=== PATIENT | female | born 1950 | race Hispanic/Latino ===

== ENCOUNTER 2018-07-01 21:14 | Emergency (ER) | payer OTHER, MEDICARE ==
[~2018-07-01 21:14] MED LIST: ATOR20TA65 PO; CHOL100018 PO; LISI10TA7 PO; METF-444 PO; OMEP10CA41 PO; SERT25TA5 PO; TRAZ-185 PO
[2018-07-01 21:59] LABS: RAPID GROUP A STREP NEGATIVE (NEGATIVE)
[2018-07-01] MEDS ORDERED: DEXAMETHASONE SOD PHOSPHATE 10MG/ML 1ML VIAL ONE (21:59)
[2018-07-01] MEDS ORDERED: IPRATROPIUM/ALBUTEROL SULFATE 3 ML SOLUTION IH ONE (22:00)
[2018-07-01] MEDS ORDERED: ACETAMINOPHEN EXTRA STRENGTH 500 MG TABLET ONE (22:00)
[2018-07-01] MEDS ORDERED: AZITHROMYCIN 250 MG TABLET PO ONE (23:09)
== END 2018-07-01 23:21 | disposition home or self-care (01) ==
LOC: EDH 21:14
DX: J20.9 Acute bronchitis, unspecified (principal); H92.09 Otalgia, unspecified ear; F32.9 Major depressive disorder, single episode, unspecified; E11.9 Type 2 diabetes mellitus without complications; E78.5 Hyperlipidemia, unspecified; E03.9 Hypothyroidism, unspecified; I10 Essential (primary) hypertension; Z79.4 Long term (current) use of insulin; Z90.710 Acquired absence of both cervix and uterus
CPT/HCPCS: 87804 ×2; 87880; 94640; 96372; 99283; J1100

== ENCOUNTER 2020-03-25 16:44 | Emergency (ER) | payer OTHER, MEDICARE ==
[~2020-03-25 16:44] MED LIST changes: -OMEP10CA41 PO; +OMEP10CA5 PO
[2020-03-25] MEDS ORDERED: ACETAMINOPHEN EXTRA STRENGTH 500 MG TABLET ONE (17:21)
[2020-03-25] MEDS ORDERED: IBUPROFEN 400 MG TABLET ONE (17:21)
[2020-03-25] MEDS ORDERED: AMOXICILLIN 500 MG CAPSULE PO ONE (17:22)
== END 2020-03-25 18:01 | disposition home or self-care (01) ==
LOC: EDH 16:44
DX: K04.7 Periapical abscess without sinus (principal); E11.9 Type 2 diabetes mellitus without complications; I10 Essential (primary) hypertension; E03.9 Hypothyroidism, unspecified; F32.9 Major depressive disorder, single episode, unspecified; Z98.51 Tubal ligation status

== ENCOUNTER 2020-04-04 19:38 | Emergency (ER) | payer OTHER, MEDICARE ==
[2020-04-04 20:21] LABS: BASOPHILS % (AUTO) 0.4 % (0.0-5.0); EOSINOPHILS % (AUTO) 1.9 % (0.0-8.0); HEMATOCRIT 37.9 % (36-48); LYMPHOCYTES % (AUTO) 32.5 % (21.0-51.0); MEAN CORPUSCULAR HEMOGLOBIN 27.4 pg (27.0-33.0); MEAN CORPUSCULAR VOLUME 83.1 fL (79-99); MONOCYTES % (AUTO) 4.9 % (3.0-13.0); NEUTROPHILS % (AUTO) 59.2 % (40.0-77.0); PLATELET COUNT (AUTO) 369 K/uL (130-400); RED BLOOD CELL COUNT(AUTO) 4.56 MIL/uL (4.00-5.50); RED CELL DISTRIBUTION WIDTH 12.3 % (11.0-15.5); WHITE BLOOD COUNT (AUTO) 7.2 K/uL (4.8-10.8)
[2020-04-04] MEDS ORDERED: ONDANSETRON HCL 4 MG/2 ML VIAL ONE (20:24)
[2020-04-04] MEDS ORDERED: MECLIZINE HCL 25 MG TABLET ONE (20:24)
[2020-04-04 20:30] LABS: CREATININE 0.6 mg/dL (0.5-1.5); INR 0.98 (0.85-1.15); POTASSIUM 3.3 mmol/L (3.5-5.1); PROTHROMBIN TIME 10.6 SEC (9.6-11.6)
[2020-04-04 20:35] LABS: ALBUMIN 3.7 g/dL (3.5-5.0); BILIRUBIN,TOTAL 0.2 mg/dL (0.2-1.0); TOTAL PROTEIN, SERUM 7.8 g/dL (6.0-8.3)
[2020-04-04] MEDS ORDERED: POTASSIUM BICARB/CIT AC 25 MEQ TABLET.EFF ONE (20:36)
[2020-04-04 20:42] LABS: B-TYPE NATRIURETIC PEPTIDE 15 pg/mL (0-100)
[2020-04-04 21:29] LABS: APPEARANCE,URINE Clear (CLEAR); BILIRUBIN,URINE Negative (NEGATIVE); COLOR,URINE Yellow (YELLOW); GLUCOSE, URINE (UA) Negative (NEGATIVE); KETONES,URINE Negative (NEGATIVE); LEUKOCYTE ESTERASE ,URINE Negative (NEGATIVE); NITRATE,URINE Negative (NEGATIVE); OCCULT BLOOD,URINE Trace (NEGATIVE); PH,URINE 8.5 (5.0-8.0); PROTEIN,URINE Negative (NEGATIVE)
[2020-04-04 21:37] LABS: BACTERIA,URINE Rare /HPF (None Seen); RBC,URINE 0-1 /HPF (0-1); WBC,URINE 0-1 /HPF (0-1)
[2020-04-04 21:38] LABS: SQUAMOUS EPITHELIAL CELL,UR Rare /HPF (0-2)
== END 2020-04-04 22:01 | disposition home or self-care (01) ==
LOC: EDH 19:38
DX: H81.399 Other peripheral vertigo, unspecified ear (principal); E86.0 Dehydration; I10 Essential (primary) hypertension; E87.6 Hypokalemia; E03.9 Hypothyroidism, unspecified; E11.9 Type 2 diabetes mellitus without complications; F32.9 Major depressive disorder, single episode, unspecified; Z98.51 Tubal ligation status
CPT/HCPCS: 36415; 70450; 80053; 81001; 82550; 83880; 84484; 85025; 85610; 85730; 93005; 96361; 96374; 99285; J2405; J7030

== ENCOUNTER 2021-01-26 11:47 | Emergency (ER) | payer OTHER, MEDICARE ==
[~2021-01-26] VITALS: Ht 152.4 cm; Wt 55.8 kg
[~2021-01-26 11:47] MED LIST changes: +LISI10TA24 PO; -LISI10TA7 PO; +SERT-438 PO; -SERT25TA5 PO
[2021-01-26 11:49] VITALS: BP 145/65
[2021-01-26] MEDS ORDERED: KETOROLAC 15MG/ML VIAL (15MG/ML) IM ONE (13:00)
[2021-01-26] MEDS ORDERED: ORPHENADRINE CITRATE 30 MG/ML ML IM ONE (13:00)
[2021-01-26 13:25] VITALS: BP 132/68
== END 2021-01-26 15:21 | disposition home or self-care (01) ==
LOC: EDH 11:47
DX: M54.5 Low back pain (principal); M25.552 Pain in left hip; E03.9 Hypothyroidism, unspecified; E78.00 Pure hypercholesterolemia, unspecified; F41.9 Anxiety disorder, unspecified; I10 Essential (primary) hypertension; K21.9 Gastro-esophageal reflux disease without esophagitis; Z79.84 Long term (current) use of oral hypoglycemic drugs; Z79.899 Other long term (current) drug therapy
CPT/HCPCS: 96372 ×2; 99284; J1885; J2360

== ENCOUNTER → 2021-01-31 | Outpatient (CLI) | payer OTHER, MEDICARE | END | disposition home or self-care (01) | LOC: RAH 15:22 | PROVIDERS: ATTEND Internal Medicine | DX: S39.012A Strain of muscle, fascia and tendon of lower back, initial encounter (principal); M47.816 Spondylosis without myelopathy or radiculopathy, lumbar region; M62.838 Other muscle spasm; X58.XXXA Exposure to other specified factors, initial encounter; Y93.89 Activity, other specified; Y92.89 Other specified places as the place of occurrence of the external cause; Y99.8 Other external cause status | CPT/HCPCS: 72100 ==

== ENCOUNTER → 2022-09-15 | Outpatient (CLI) | payer OTHER, MEDICARE | END | disposition home or self-care (01) | LOC: RAH 10:21 | PROVIDERS: ATTEND Internal Medicine | DX: Z12.31 Encounter for screening mammogram for malignant neoplasm of breast (principal) | CPT/HCPCS: 77067 ==

== ENCOUNTER 2023-02-02 12:25 | Emergency (ER) | payer MEDICARE ==
[~2023-02-02] VITALS: Ht 152.4 cm; Wt 53.5 kg
[2023-02-02 12:50] VITALS: BP 146/87; PULSE 82; RESP 16; O2SAT 97
[2023-02-02] MEDS ORDERED: DIPH,PERTUSS(ACELL),TET VAC/PF 0.5 ML VIAL IM ONE (13:30)
[2023-02-02] MEDS ORDERED: BACI28.434 TP (13:52)
== END 2023-02-02 14:06 | disposition home or self-care (01) ==
LOC: EDH 12:25
DX: S90.812A Abrasion, left foot, initial encounter (principal); S80.212A Abrasion, left knee, initial encounter; I10 Essential (primary) hypertension; E78.00 Pure hypercholesterolemia, unspecified; E03.9 Hypothyroidism, unspecified; F41.9 Anxiety disorder, unspecified; Z79.84 Long term (current) use of oral hypoglycemic drugs; Z79.899 Other long term (current) drug therapy; W18.39XA Other fall on same level, initial encounter; Y93.89 Activity, other specified; Y92.89 Other specified places as the place of occurrence of the external cause; Y99.8 Other external cause status
CPT/HCPCS: 73140; 73562; 73630; 90471; 90715

== ENCOUNTER → 2023-02-13 | Outpatient (CLI) | payer MEDICARE ==
[~2023-02-13] MED LIST changes: +BACI28.434 TP
== END | disposition home or self-care (01) ==
LOC: RAH 11:45
PROVIDERS: ATTEND Internal Medicine
DX: S96.912A Strain of unspecified muscle and tendon at ankle and foot level, left foot, initial encounter (principal); S56.912A Strain of unspecified muscles, fascia and tendons at forearm level, left arm, initial encounter; M25.572 Pain in left ankle and joints of left foot; M19.072 Primary osteoarthritis, left ankle and foot; M19.042 Primary osteoarthritis, left hand; M79.642 Pain in left hand; M79.632 Pain in left forearm; M79.672 Pain in left foot; M79.89 Other specified soft tissue disorders; X58.XXXA Exposure to other specified factors, initial encounter; Y93.89 Activity, other specified; Y92.89 Other specified places as the place of occurrence of the external cause; Y99.8 Other external cause status
CPT/HCPCS: 73090; 73130; 73600; 73630

== ENCOUNTER 2023-05-07 09:49 | Inpatient (IN) | payer MEDICARE ==
[~2023-05-07] VITALS: Ht 152.4 cm; Wt 57.7 kg
[2023-05-07 10:57] LABS: BASOPHILS # (AUTO) 0.04 K/uL (0.00-0.20); BASOPHILS % (AUTO) 0.3 % (0.0-5.0); EOSINOPHILS # (AUTO) 0.05 K/uL (0.00-0.70); EOSINOPHILS % (AUTO) 0.4 % (0.0-8.0); HEMATOCRIT 39.4 % (36-48); IMMATURE GRANULOCYTE ABSOLUTE 0.04 K/uL (0-1); LYMPHOCYTES % (AUTO) 15.6 % (21.0-51.0); MEAN CORPUSCULAR HEMOGLOBIN 28.6 pg (27.0-33.0); MEAN CORPUSCULAR HGB CONC 33.8 g/dL (32.0-36.0); MEAN CORPUSCULAR VOLUME 84.7 fL (79-99); MONOCYTES # (AUTO) 0.6 K/uL (0.1-1.0); MONOCYTES % (AUTO) 4.6 % (3.0-13.0); NEUTROPHILS # (AUTO) 10.1 K/uL (1.8-7.7); NEUTROPHILS % (AUTO) 78.8 % (40.0-77.0); PLATELET COUNT (AUTO) 330 K/uL (130-400); RED BLOOD CELL COUNT(AUTO) 4.65 MIL/uL (4.00-5.50); RED CELL DISTRIBUTION WIDTH 12.7 % (11.0-15.5); WHITE BLOOD COUNT (AUTO) 12.8 K/uL (4.8-10.8)
[2023-05-07 11:09] LABS: CREATININE 0.6 mg/dL (0.5-1.5); POTASSIUM 3.6 mmol/L (3.5-5.1)
[2023-05-07 11:15] LABS: ALBUMIN 3.7 g/dL (3.5-5.0); BILIRUBIN,TOTAL 0.5 mg/dL (0.2-1.0); TOTAL PROTEIN, SERUM 7.9 g/dL (6.0-8.3)
[2023-05-07] MEDS ORDERED: KETOROLAC 30MG VIAL (30MG/ML) IVP ONE (11:30)
[2023-05-07] MEDS ORDERED: ZOSYN 3.375GM +NS 50ML IV ONE (12:00)
[2023-05-07] MEDS ORDERED: LACTATED RINGERS 1000ML IV SCH (12:00)
[2023-05-07] MEDS ORDERED: MORPHINE 2 MG SYG IVP PRN (12:30)
[2023-05-07] MEDS ORDERED: ONDANSETRON 4MG TABLET PO PRN (12:30)
[2023-05-07] MEDS ORDERED: NAPR-1023 PO (13:03)
[2023-05-07] MEDS ORDERED: SERT-440 PO (13:03)
[2023-05-07] MEDS ORDERED: OMEP20CA12 PO (13:03)
[2023-05-07] MEDS ORDERED: LISI10TA24 PO (13:03)
[2023-05-07] MEDS ORDERED: LEVO112C4 PO (13:03)
[2023-05-07 13:31] LABS: INFLUENZA TYPE A Negative For Type A (NEGATIVE); INFLUENZA TYPE B Negative For Type B (NEGATIVE)
[2023-05-07] MEDS ORDERED: IOHEXOL-350 50ML VIAL IV ONE (14:18)
[2023-05-07 16:00] VITALS: BP 146/72; PULSE 70; RESP 18
[2023-05-07 18:00] VITALS: O2SAT 97
[2023-05-07 19:30] VITALS: BP 151/87; PULSE 78; RESP 20
[2023-05-07] MEDS: ZOSYN 3.375GM +NS 50ML IV SCH (20:45)
[2023-05-07 21:00] VITALS: O2SAT 97
[2023-05-07 23:00] VITALS: BP 141/48; PULSE 90; RESP 21
[2023-05-08] MEDS: ACETAMINOPHEN 325 MG TAB PO PRN (00:50)
[2023-05-08 03:00] VITALS: BP 116/59; PULSE 77; RESP 20
[2023-05-08] MEDS: ZOSYN 3.375GM +NS 50ML IV SCH ×3 (04:13→21:07)
[2023-05-08 05:16] LABS: BASOPHILS # (AUTO) 0.04 K/uL (0.00-0.20); BASOPHILS % (AUTO) 0.5 % (0.0-5.0); EOSINOPHILS # (AUTO) 0.11 K/uL (0.00-0.70); EOSINOPHILS % (AUTO) 1.3 % (0.0-8.0); HEMATOCRIT 34.7 % (36-48); IMMATURE GRANULOCYTE ABSOLUTE 0.04 K/uL (0-1); LYMPHOCYTES # (AUTO) 2.3 K/uL (1.0-4.8); LYMPHOCYTES % (AUTO) 26.3 % (21.0-51.0); MEAN CORPUSCULAR HGB CONC 33.4 g/dL (32.0-36.0); MEAN CORPUSCULAR VOLUME 86.8 fL (79-99); MONOCYTES # (AUTO) 0.6 K/uL (0.1-1.0); MONOCYTES % (AUTO) 6.7 % (3.0-13.0); NEUTROPHILS # (AUTO) 5.6 K/uL (1.8-7.7); NEUTROPHILS % (AUTO) 64.7 % (40.0-77.0); PLATELET COUNT (AUTO) 266 K/uL (130-400); RED CELL DISTRIBUTION WIDTH 12.5 % (11.0-15.5); WHITE BLOOD COUNT (AUTO) 8.7 K/uL (4.8-10.8)
[2023-05-08 05:42] LABS: HEMOGLOBIN A1C 5.7 % (4.0-6.0)
[2023-05-08 05:49] LABS: ALBUMIN 2.9 g/dL (3.5-5.0); BILIRUBIN,TOTAL 0.6 mg/dL (0.2-1.0); CREATININE 0.7 mg/dL (0.5-1.5); MAGNESIUM 1.9 mg/dL (1.80-2.40); POTASSIUM 3.2 mmol/L (3.5-5.1); TOTAL PROTEIN, SERUM 6.7 g/dL (6.0-8.3)
[2023-05-08 08:00] VITALS: BP 98/47; PULSE 72; RESP 18; O2SAT 98
[2023-05-08] MEDS: ENOXAPARIN SODIUM 30 MG/0.3 ML SQ SCH (10:22)
[2023-05-08 12:00] VITALS: BP 119/68; PULSE 62; RESP 18
[2023-05-08] MEDS ORDERED: GADOTERATE MEGLUMINE 10 MMOL/20 ML VIAL IV ONE (12:38)
[2023-05-08 16:00] VITALS: BP 125/54; PULSE 72; RESP 18
[2023-05-08] MEDS ORDERED: NAPROXEN 500 MG TABLET PO PRN (18:00)
[2023-05-08 20:00] VITALS: BP 136/76; PULSE 68; RESP 16
[2023-05-08] MEDS: ATORVASTATIN 20 MG TABLET PO SCH (21:07)
[2023-05-09] VITALS (9 sets, daily range): BP systolic 100–144; BP diastolic 45–81; PULSE 63–79; RESP 16–18; O2SAT 94–96
[2023-05-09] MEDS: ZOSYN 3.375GM +NS 50ML IV SCH ×3 (04:55→20:42)
[2023-05-09] MEDS: LEVOTHYROXINE 112 MCG TABLET PO SCH (06:23)
[2023-05-09] MEDS ORDERED: NON-FORMULARY MEDICATION 1 EACH (Levothyroxine Sodium (Levothyroxine) 112 MCG) PO SCH (09:00)
[2023-05-09] MEDS ORDERED: NON-FORMULARY MEDICATION 1 EACH (Omeprazole 20 MG) PO SCH (09:00)
[2023-05-09] MEDS: ENOXAPARIN SODIUM 30 MG/0.3 ML SQ SCH (09:41)
[2023-05-09] MEDS: LISINOPRIL 10 MG TABLET PO SCH (09:41)
[2023-05-09] MEDS: PANTOPRAZOLE 40 MG TAB DR PO SCH (09:41)
[2023-05-09] MEDS: SERTRALINE HCL 50 MG TABLET PO SCH (09:41)
[2023-05-09] MEDS ORDERED: LORATADINE 10 MG TABLET PO ONE (15:00)
[2023-05-09] MEDS: ATORVASTATIN 20 MG TABLET PO SCH (20:42)
[2023-05-09] MEDS: GUAIFENESIN 600 MG TABLET.ER PO SCH (20:43)
[2023-05-10] VITALS (14 sets, daily range): BP systolic 127–143; BP diastolic 63–77; PULSE 65–102; RESP 16–21; O2SAT 96–98
[2023-05-10] MEDS: ACETAMINOPHEN 325 MG TAB PO PRN (00:02)
[2023-05-10] MEDS: IPRATROPIUM/ALBUTEROL SULFATE 3 ML SOLUTION IH PRN ×4 (04:40→19:02)
[2023-05-10] MEDS: GUAIFENESIN 600 MG TABLET.ER PO SCH ×3 (05:03→20:24)
[2023-05-10] MEDS: ZOSYN 3.375GM +NS 50ML IV SCH ×3 (05:03→20:26)
[2023-05-10 05:19] LABS: HEMATOCRIT 33.7 % (36-48); MEAN CORPUSCULAR HEMOGLOBIN 28.6 pg (27.0-33.0); MEAN CORPUSCULAR HGB CONC 34.1 g/dL (32.0-36.0); MEAN CORPUSCULAR VOLUME 83.8 fL (79-99); RED BLOOD CELL COUNT(AUTO) 4.02 MIL/uL (4.00-5.50); RED CELL DISTRIBUTION WIDTH 12.4 % (11.0-15.5); WHITE BLOOD COUNT (AUTO) 7.3 K/uL (4.8-10.8)
[2023-05-10 05:49] LABS: CREATININE 0.7 mg/dL (0.5-1.5); POTASSIUM 3.2 mmol/L (3.5-5.1)
[2023-05-10] MEDS: LEVOTHYROXINE 112 MCG TABLET PO SCH (06:20)
[2023-05-10] MEDS: LISINOPRIL 10 MG TABLET PO SCH (08:51)
[2023-05-10] MEDS: LORATADINE 10 MG TABLET PO SCH (08:51)
[2023-05-10] MEDS: PANTOPRAZOLE 40 MG TAB DR PO SCH (08:51)
[2023-05-10] MEDS: ENOXAPARIN SODIUM 30 MG/0.3 ML SQ SCH (08:52)
[2023-05-10] MEDS: SERTRALINE HCL 50 MG TABLET PO SCH (08:55)
[2023-05-10] MEDS ORDERED: SOLU-MEDROL 40MG VIAL IVP ONE (14:00)
[2023-05-10] MEDS ORDERED: SODIUM CHLORIDE 3% FOR INHALATION 4 ML/AMP VIAL.NEB IH ONE (14:06)
[2023-05-10] MEDS: DOXYCYCLINE HYCLATE 100 MG TABLET PO SCH ×2 (14:41→20:22)
[2023-05-10 15:47] LABS: INFLUENZA TYPE B Negative For Type B (NEGATIVE)
[2023-05-10 15:59] LABS: INFLUENZA TYPE A Positive For Type A (NEGATIVE)
[2023-05-10] MEDS: OSELTAMIVIR PHOSPHATE 75 MG CAP PO SCH (20:22)
[2023-05-10] MEDS: ATORVASTATIN 20 MG TABLET PO SCH (20:22)
[2023-05-11] VITALS (13 sets, daily range): BP systolic 99–153; BP diastolic 48–85; PULSE 62–76; RESP 16–20; O2SAT 93–98
[2023-05-11] MEDS: IPRATROPIUM/ALBUTEROL SULFATE 3 ML SOLUTION IH PRN (00:02)
[2023-05-11] MEDS: GUAIFENESIN 600 MG TABLET.ER PO SCH ×3 (03:40→20:23)
[2023-05-11] MEDS: ZOSYN 3.375GM +NS 50ML IV SCH ×3 (03:40→20:22)
[2023-05-11 04:54] LABS: BASOPHILS # (AUTO) 0.01 K/uL (0.00-0.20); BASOPHILS % (AUTO) 0.1 % (0.0-5.0); HEMATOCRIT 32.4 % (36-48); IMMATURE GRANULOCYTE ABSOLUTE 0.02 K/uL (0-1); LYMPHOCYTES # (AUTO) 0.8 K/uL (1.0-4.8); LYMPHOCYTES % (AUTO) 12.3 % (21.0-51.0); MEAN CORPUSCULAR HEMOGLOBIN 28.6 pg (27.0-33.0); MEAN CORPUSCULAR HGB CONC 33.3 g/dL (32.0-36.0); MEAN CORPUSCULAR VOLUME 85.9 fL (79-99); MONOCYTES # (AUTO) 0.4 K/uL (0.1-1.0); MONOCYTES % (AUTO) 5.9 % (3.0-13.0); NEUTROPHILS # (AUTO) 5.5 K/uL (1.8-7.7); NEUTROPHILS % (AUTO) 81.4 % (40.0-77.0); PLATELET COUNT (AUTO) 295 K/uL (130-400); RED BLOOD CELL COUNT(AUTO) 3.77 MIL/uL (4.00-5.50); RED CELL DISTRIBUTION WIDTH 12.5 % (11.0-15.5); WHITE BLOOD COUNT (AUTO) 6.7 K/uL (4.8-10.8)
[2023-05-11 05:06] LABS: CREATININE 0.8 mg/dL (0.5-1.5); MAGNESIUM 1.9 mg/dL (1.80-2.40); POTASSIUM 3.3 mmol/L (3.5-5.1)
[2023-05-11] MEDS: LEVOTHYROXINE 112 MCG TABLET PO SCH (05:26)
[2023-05-11] MEDS: PANTOPRAZOLE 40 MG TAB DR PO SCH (06:10)
[2023-05-11] MEDS: OSELTAMIVIR PHOSPHATE 75 MG CAP PO SCH ×2 (08:26→20:23)
[2023-05-11] MEDS: LORATADINE 10 MG TABLET PO SCH (08:26)
[2023-05-11] MEDS: SERTRALINE HCL 50 MG TABLET PO SCH (08:26)
[2023-05-11] MEDS: DOXYCYCLINE HYCLATE 100 MG TABLET PO SCH ×2 (08:26→20:23)
[2023-05-11] MEDS: LISINOPRIL 10 MG TABLET PO SCH (08:26)
[2023-05-11] MEDS: ENOXAPARIN SODIUM 30 MG/0.3 ML SQ SCH (08:27)
[2023-05-11] MEDS ORDERED: POTASSIUM CHLORIDE 10% ELIXIR 20 MEQ/15 ML UDCUP PO PRN (12:30)
[2023-05-11] MEDS ORDERED: MAGNESIUM 2GM PREMIX 50ML 50 ML IV PRN (12:30)
[2023-05-11] MEDS ORDERED: POTASSIUM CHLORIDE 20MEQ/100ML 100 ML IV PRN (12:30)
[2023-05-11] MEDS: KCL 20 MEQ ERTAB PO PRN ×2 (12:40→20:22)
[2023-05-11] MEDS: ATORVASTATIN 20 MG TABLET PO SCH (20:23)
[2023-05-12] VITALS (7 sets, daily range): BP systolic 106–134; BP diastolic 58–77; PULSE 67–69; RESP 16–18; O2SAT 94–95
[2023-05-12] MEDS: GUAIFENESIN 600 MG TABLET.ER PO SCH ×3 (04:37→20:12)
[2023-05-12] MEDS: ZOSYN 3.375GM +NS 50ML IV SCH ×3 (04:37→20:13)
[2023-05-12] MEDS: LEVOTHYROXINE 112 MCG TABLET PO SCH (04:38)
[2023-05-12] MEDS: LISINOPRIL 10 MG TABLET PO SCH (09:54)
[2023-05-12] MEDS: ENOXAPARIN SODIUM 30 MG/0.3 ML SQ SCH (09:54)
[2023-05-12] MEDS: DOXYCYCLINE HYCLATE 100 MG TABLET PO SCH ×2 (09:54→20:12)
[2023-05-12] MEDS: OSELTAMIVIR PHOSPHATE 75 MG CAP PO SCH ×2 (09:54→20:12)
[2023-05-12] MEDS: LORATADINE 10 MG TABLET PO SCH (09:54)
[2023-05-12] MEDS: PANTOPRAZOLE 40 MG TAB DR PO SCH (09:54)
[2023-05-12] MEDS: SERTRALINE HCL 50 MG TABLET PO SCH (09:54)
[2023-05-12] MEDS: ATORVASTATIN 20 MG TABLET PO SCH (20:12)
[2023-05-13] VITALS (7 sets, daily range): BP systolic 106–146; BP diastolic 58–83; PULSE 59–73; RESP 17–18; O2SAT 94–96
[2023-05-13] MEDS: ZOSYN 3.375GM +NS 50ML IV SCH ×2 (04:07→12:40)
[2023-05-13] MEDS: GUAIFENESIN 600 MG TABLET.ER PO SCH ×2 (04:07→12:39)
[2023-05-13] MEDS: LEVOTHYROXINE 112 MCG TABLET PO SCH (04:39)
[2023-05-13 05:10] LABS: HEMATOCRIT 35.2 % (36-48); MEAN CORPUSCULAR HEMOGLOBIN 28.4 pg (27.0-33.0); MEAN CORPUSCULAR HGB CONC 32.7 g/dL (32.0-36.0); MEAN CORPUSCULAR VOLUME 86.9 fL (79-99); RED BLOOD CELL COUNT(AUTO) 4.05 MIL/uL (4.00-5.50); RED CELL DISTRIBUTION WIDTH 12.5 % (11.0-15.5); WHITE BLOOD COUNT (AUTO) 6.8 K/uL (4.8-10.8)
[2023-05-13 05:23] LABS: CREATININE 0.7 mg/dL (0.5-1.5); MAGNESIUM 1.9 mg/dL (1.80-2.40); POTASSIUM 3.7 mmol/L (3.5-5.1)
[2023-05-13] MEDS: KCL 20 MEQ ERTAB PO PRN (06:20)
[2023-05-13] MEDS: SERTRALINE HCL 50 MG TABLET PO SCH (09:17)
[2023-05-13] MEDS: PANTOPRAZOLE 40 MG TAB DR PO SCH (09:17)
[2023-05-13] MEDS: LISINOPRIL 10 MG TABLET PO SCH (09:17)
[2023-05-13] MEDS: DOXYCYCLINE HYCLATE 100 MG TABLET PO SCH (09:17)
[2023-05-13] MEDS: LORATADINE 10 MG TABLET PO SCH (09:17)
[2023-05-13] MEDS: OSELTAMIVIR PHOSPHATE 75 MG CAP PO SCH (09:17)
[2023-05-13] MEDS: ENOXAPARIN SODIUM 30 MG/0.3 ML SQ SCH (09:18)
== END 2023-05-13 18:10 | disposition home or self-care (01) | DRG 871 ==
LOC: EDH 09:49 → EDHIP 12:15 → 3CH 15:00
PROVIDERS: ADMIT Internal Medicine Infectious Disease; ATTEND Internal Medicine Infectious Disease
DX: A41.9 Sepsis, unspecified organism (principal); J10.00 Influenza due to other identified influenza virus with unspecified type of pneumonia; J96.90 Respiratory failure, unspecified, unspecified whether with hypoxia or hypercapnia; E11.9 Type 2 diabetes mellitus without complications; E03.9 Hypothyroidism, unspecified; I10 Essential (primary) hypertension; E78.00 Pure hypercholesterolemia, unspecified; H60.92 Unspecified otitis externa, left ear; F32.A Depression, unspecified; H66.92 Otitis media, unspecified, left ear; F41.9 Anxiety disorder, unspecified; Z83.3 Family history of diabetes mellitus; Z79.899 Other long term (current) drug therapy
CPT/HCPCS: 36415; 70488; 70553; 80048; 80053; 83036; 83735; 84132; 85025; 85027; 87040; 87071; 87077; 87186; 87205; 87804; 94640; 94664; G0378; J1650; J1885; J2270; J2543; J2920; J3475; J7120; Q9967; A9575

== ENCOUNTER → 2023-11-25 | Outpatient (CLI) | payer MEDICARE ==
[~2023-11-25] MED LIST changes: -BACI28.434 TP; -CHOL100018 PO; +LEVO112C4 PO; -METF-444 PO; +NAPR-1023 PO; -OMEP10CA5 PO; +OMEP20CA12 PO; -SERT-438 PO; +SERT-440 PO; -TRAZ-185 PO
== END | disposition home or self-care (01) ==
LOC: RAH 10:38
PROVIDERS: ATTEND Internal Medicine
DX: Z12.31 Encounter for screening mammogram for malignant neoplasm of breast (principal); R92.333 Mammographic heterogeneous density, bilateral breasts
CPT/HCPCS: 77067

== ENCOUNTER → 2025-06-01 | Outpatient (CLI) | payer MEDICARE, MEDICAID ==
[~2025-06-01] MED LIST changes: -LEVO112C4 PO; +LEVO112C5 PO; -NAPR-1023 PO
== END ==
LOC: RAH 14:45
PROVIDERS: ATTEND Internal Medicine
DX: Z12.31 Encounter for screening mammogram for malignant neoplasm of breast (principal)
CPT/HCPCS: 77067